=== PATIENT | male | born 1980 | race Caucasian/White ===

== ENCOUNTER 2021-09-11 13:14 | Emergency (ER) | payer SELFPAY ==
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
[2021-09-11 13:41] VITALS: TEMP 99.1; O2SAT 98
[2021-09-11 13:43] VITALS: BP 138/82
== END 2021-09-11 13:35 | disposition home or self-care (01) ==
LOC: ER 13:14
DX: R29.898 Other symptoms and signs involving the musculoskeletal system (principal); V89.2XXA Person injured in unspecified motor-vehicle accident, traffic, initial encounter; F17.210 Nicotine dependence, cigarettes, uncomplicated
CPT/HCPCS: 99284